=== PATIENT | female | born 1940 | race Caucasian/White ===

== ENCOUNTER 2017-09-22 22:34 | Inpatient (IN) | payer OTHER ==
[~2017-09-22] VITALS: Ht 154.9 cm; Wt 62.7 kg
[~2017-09-22 22:34] MED LIST: ASPIRIN81 M2 PO; ATIVAN0.5 MG PO; DULCOLAX5 MG PO; HYDROCHLOROTH12.5 M3 PO; K-DUR20 MEQ PO; METAMUCIL POWD798 GM PO; PERCOCET 5/31 TABLET PO; POLYETHYLENE GL17 GM PO; SYNTHROID112 MCG PO
[2017-09-22 23:19] LABS: HEMOGLOBIN 14.2 G/DL (11.9-15.5); MCH 32.6 PG (29.0-34.0); MCHC 34.6 G/DL (30.0-36.0); PLATELET COUNT 257 K/uL (156-360); RBC DIS.WIDTH-CV 12.7 % (11.8-14.6); RBC DIS.WIDTH-SD 44.1 % (39-53); RED BLOOD COUNT 4.36 M/uL (3.80-5.20)
[2017-09-22 23:27] LABS: ALBUMIN 4.3 g/dL (3.2-4.8); CHLORIDE 105 mEq/L (99-109); POTASSIUM 3.7 mEq/L (3.7-5.4); SODIUM 145 mEq/L (136-147)
[2017-09-22 23:29] LABS: GLUCOSE 147 mg/dL (70-99); TOTAL PROTEIN 6.9 g/dL (6.4-8.3)
[2017-09-22 23:31] LABS: TOTAL BILIRUBIN 1.1 mg/dL (0.0-1.0)
[2017-09-22 23:33] LABS: ALKALINE PHOSPHATASE 68 IU/L (3-129); CREATININE 0.8 mg/dL (0.6-1.3); GFR ESTIMATE (CALCULATED) > 59 mL/min/
[2017-09-22 23:34] LABS: UREA NITROGEN (BUN) 12 mg/dL (9-23)
[2017-09-22 23:35] LABS: AST (GOT) 16 IU/L (2-34)
[2017-09-22 23:36] LABS: ALT (GPT) 17 IU/L (3-49)
[2017-09-23 01:18] LABS: APPEARANCE CLOUDY ((CLEAR)); BILIRUBIN NEGATIVE; BLOOD NEGATIVE; COLOR YELLOW ((YELLOW)); GLUCOSE (STRIP) NEGATIVE; KETONES 5; LEUKOCYTES NEGATIVE; NITRITE NEGATIVE; PROTEIN (STRIP) NEGATIVE; SPECIFIC GRAVITY 1.016 (1.000-1.030); UROBILINOGEN 0.2 MG/DL (0.2-1.0)
[2017-09-23 01:38] LABS: BACTERIA 2+ /HPF; EPITHELIAL CELLS 1+ /HPF; MUCUS 2+ /LPF; RED BLOOD CELLS NONE SEEN /HPF (0-5); UCUL ADDED? YES; WHITE BLOOD CELLS NONE SEEN /HPF (0-5)
[2017-09-23 01:39] LABS: AMORPHOUS URATES CRYSTALS 3+
[2017-09-23 01:56] LABS: LIPASE 128 U/L (1.0-51.0)
[2017-09-23 02:01] LABS: TROP-I INTERPRETATION NEGATIVE; TROPONIN-I 0.01 ng/mL (0.0-0.30)
[2017-09-23 08:29] LABS: BASOPHIL (%) 0.2 % (0-1); EOSINOPHIL (%) 0.1 % (0-5); HEMATOCRIT 38.4 % (36.0-46.0); HEMOGLOBIN 13.4 G/DL (11.9-15.5); IMMATURE GRANULOCYTE (%) 0.4 % (0.0-0.7); LYMPHOCYTE COUNT 0.8 K/uL (1.0-2.8); MCH 32.8 PG (29.0-34.0); MCHC 34.9 G/DL (30.0-36.0); MCV 93.9 FL (83-99); MONOCYTE (%) 9.9 % (3-12); NEUTROPHIL (%) 81.4 % (45-76); PLATELET COUNT 258 K/uL (156-360); RBC DIS.WIDTH-SD 45.1 % (39-53); RED BLOOD COUNT 4.09 M/uL (3.80-5.20); WHITE BLOOD COUNT 9.8 K/uL (4.1-10.2)
[2017-09-23 08:38] LABS: ALBUMIN 3.9 g/dL (3.2-4.8); CHLORIDE 110 mEq/L (99-109); POTASSIUM 3.4 mEq/L (3.7-5.4); SODIUM 144 mEq/L (136-147)
[2017-09-23 08:40] LABS: GLUCOSE 121 mg/dL (70-99); TOTAL PROTEIN 6.1 g/dL (6.4-8.3)
[2017-09-23 08:42] LABS: TOTAL BILIRUBIN 1.3 mg/dL (0.0-1.0)
[2017-09-23 08:44] LABS: ALKALINE PHOSPHATASE 58 IU/L (3-129); CREATININE 0.7 mg/dL (0.6-1.3); GFR ESTIMATE (CALCULATED) > 59 mL/min/
[2017-09-23 08:45] LABS: UREA NITROGEN (BUN) 9 mg/dL (9-23)
[2017-09-23 08:46] LABS: AST (GOT) 15 IU/L (2-34)
[2017-09-23 08:47] LABS: ALT (GPT) 16 IU/L (3-49)
[2017-09-23] MEDS ORDERED: VITAMIN D32000 UNI1 PO (09:46)
[2017-09-23] MEDS ORDERED: ULTRAM50 MG PO (09:46)
[2017-09-23 10:03] LABS: DIRECT BILIRUBIN 0.4 mg/dL (0.0-0.3); LIPASE 25 U/L (1.0-51.0)
[2017-09-23 21:50] VITALS: BP 127/57
[2017-09-23 23:50] VITALS: BP 131/64
[2017-09-24 04:45] VITALS: BP 136/66
[2017-09-24 04:45] LABS: HEMATOCRIT 35.5 % (36.0-46.0); MCH 32.8 PG (29.0-34.0); MCHC 33.8 G/DL (30.0-36.0); PLATELET COUNT 203 K/uL (156-360); RBC DIS.WIDTH-CV 13.2 % (11.8-14.6); RBC DIS.WIDTH-SD 47.4 % (39-53); RED BLOOD COUNT 3.66 M/uL (3.80-5.20); WHITE BLOOD COUNT 6.2 K/uL (4.1-10.2)
[2017-09-24 04:56] LABS: CHLORIDE 109 mEq/L (99-109); SODIUM 145 mEq/L (136-147)
[2017-09-24 04:58] LABS: GLUCOSE 162 mg/dL (70-99)
[2017-09-24 05:02] LABS: CREATININE 0.8 mg/dL (0.6-1.3); GFR ESTIMATE (CALCULATED) > 59 mL/min/
[2017-09-24 05:03] LABS: UREA NITROGEN (BUN) 13 mg/dL (9-23)
[2017-09-24 05:04] LABS: POTASSIUM 4.1 mEq/L (3.7-5.4)
[2017-09-24 07:05] VITALS: BP 131/61
[2017-09-24 11:16] VITALS: BP 137/61
[2017-09-24 15:31] VITALS: BP 141/66
[2017-09-24 20:35] VITALS: BP 148/66
[2017-09-25 00:22] VITALS: BP 162/70
[2017-09-25 04:26] VITALS: BP 162/73
[2017-09-25 06:51] LABS: HEMATOCRIT 33.2 % (36.0-46.0); HEMOGLOBIN 10.6 G/DL (11.9-15.5); MCH 31.5 PG (29.0-34.0); MCHC 31.9 G/DL (30.0-36.0); MCV 98.5 FL (83-99); PLATELET COUNT 180 K/uL (156-360); RBC DIS.WIDTH-CV 13.2 % (11.8-14.6); RBC DIS.WIDTH-SD 47.8 % (39-53); RED BLOOD COUNT 3.37 M/uL (3.80-5.20); WHITE BLOOD COUNT 6.5 K/uL (4.1-10.2)
[2017-09-25 07:14] LABS: CHLORIDE 110 MEQ/L (99-109); CREATININE 0.5 MG/DL (0.6-1.3); GFR ESTIMATE (CALCULATED) > 59 mL/min/; POTASSIUM 4.2 MEQ/L (3.7-5.4); SODIUM 142 MEQ/L (136-147); UREA NITROGEN (BUN) 13 mg/dL (9-23)
[2017-09-25 07:15] LABS: GLUCOSE 109 mg/dL (70-99)
[2017-09-25 08:00] VITALS: BP 169/79
[2017-09-25 12:05] VITALS: BP 152/67
[2017-09-25 16:31] VITALS: BP 186/72
[2017-09-25 19:59] VITALS: BP 158/71
[2017-09-26 00:34] VITALS: BP 151/67
[2017-09-26 03:42] VITALS: BP 151/67
[2017-09-26 06:53] LABS: BASOPHIL (%) 0.1 % (0-1); EOSINOPHIL (%) 0.9 % (0-5); EOSINOPHIL COUNT 0.1 K/uL (0-0.3); HEMATOCRIT 30.5 % (36.0-46.0); HEMOGLOBIN 10.2 G/DL (11.9-15.5); IMMATURE GRANULOCYTE (%) 1.3 % (0.0-0.7); LYMPHOCYTE (%) 10.6 % (15-42); LYMPHOCYTE COUNT 0.8 K/uL (1.0-2.8); MCH 32.1 PG (29.0-34.0); MCHC 33.4 G/DL (30.0-36.0); MCV 95.9 FL (83-99); MONOCYTE (%) 10.1 % (3-12); MONOCYTE COUNT 0.8 K/uL (0-0.8); NEUTROPHIL COUNT 6.1 K/uL (1.8-6.4); PLATELET COUNT 183 K/uL (156-360); RBC DIS.WIDTH-CV 12.6 % (11.8-14.6); RBC DIS.WIDTH-SD 45.1 % (39-53); RED BLOOD COUNT 3.18 M/uL (3.80-5.20); WHITE BLOOD COUNT 7.9 K/uL (4.1-10.2)
[2017-09-26 07:12] LABS: ALBUMIN 2.6 G/DL (3.2-4.8); ALKALINE PHOSPHATASE 53 IU/L (3-129); ALT (GPT) 9 IU/L (3-49); AST (GOT) 9 IU/L (2-34); CHLORIDE 105 MEQ/L (99-109); CREATININE 0.4 MG/DL (0.6-1.3); GFR ESTIMATE (CALCULATED) > 59 mL/min/; GLUCOSE 118 mg/dL (70-99); POTASSIUM 3.5 MEQ/L (3.7-5.4); SODIUM 139 MEQ/L (136-147); TOTAL BILIRUBIN 1.6 MG/DL (0.0-1.0); TOTAL PROTEIN 4.6 G/DL (6.4-8.3); UREA NITROGEN (BUN) 8 mg/dL (9-23)
[2017-09-26 08:24] VITALS: BP 174/72
[2017-09-26 16:45] VITALS: BP 170/81
[2017-09-26 19:41] VITALS: BP 162/86
[2017-09-27] VITALS (7 sets, daily range): BP systolic 120–175; BP diastolic 62–82
[2017-09-27 06:12] LABS: HEMATOCRIT 31.8 % (36.0-46.0); HEMOGLOBIN 10.7 G/DL (11.9-15.5); MCH 31.6 PG (29.0-34.0); MCHC 33.6 G/DL (30.0-36.0); MCV 93.8 FL (83-99); PLATELET COUNT 221 K/uL (156-360); RBC DIS.WIDTH-CV 12.4 % (11.8-14.6); RBC DIS.WIDTH-SD 42.9 % (39-53); RED BLOOD COUNT 3.39 M/uL (3.80-5.20); WHITE BLOOD COUNT 7.4 K/uL (4.1-10.2)
[2017-09-27 06:36] LABS: CHLORIDE 106 MEQ/L (99-109); CREATININE 0.5 MG/DL (0.6-1.3); GFR ESTIMATE (CALCULATED) > 59 mL/min/; GLUCOSE 138 mg/dL (70-99); POTASSIUM 3.5 MEQ/L (3.7-5.4); SODIUM 143 MEQ/L (136-147); UREA NITROGEN (BUN) 6 mg/dL (9-23)
[2017-09-28] VITALS (7 sets, daily range): BP systolic 127–157; BP diastolic 61–70
[2017-09-28 06:14] LABS: HEMATOCRIT 31.8 % (36.0-46.0); HEMOGLOBIN 10.6 G/DL (11.9-15.5); MCH 31.8 PG (29.0-34.0); MCHC 33.3 G/DL (30.0-36.0); MCV 95.5 FL (83-99); PLATELET COUNT 237 K/uL (156-360); RBC DIS.WIDTH-CV 12.5 % (11.8-14.6); RBC DIS.WIDTH-SD 43.9 % (39-53); RED BLOOD COUNT 3.33 M/uL (3.80-5.20); WHITE BLOOD COUNT 7.7 K/uL (4.1-10.2)
[2017-09-28 06:35] LABS: CHLORIDE 105 MEQ/L (99-109); CREATININE 0.5 MG/DL (0.6-1.3); GFR ESTIMATE (CALCULATED) > 59 mL/min/; GLUCOSE 119 mg/dL (70-99); POTASSIUM 3.7 MEQ/L (3.7-5.4); SODIUM 142 MEQ/L (136-147); UREA NITROGEN (BUN) 8 mg/dL (9-23)
[2017-09-29 04:13] VITALS: BP 153/69
[2017-09-29 06:07] LABS: HEMATOCRIT 32.7 % (36.0-46.0); HEMOGLOBIN 11.2 G/DL (11.9-15.5); MCHC 34.3 G/DL (30.0-36.0); MCV 93.4 FL (83-99); PLATELET COUNT 273 K/uL (156-360); RBC DIS.WIDTH-CV 12.5 % (11.8-14.6); RBC DIS.WIDTH-SD 42.5 % (39-53); WHITE BLOOD COUNT 7.8 K/uL (4.1-10.2)
[2017-09-29 07:19] LABS: CHLORIDE 100 MEQ/L (99-109); CREATININE 0.4 MG/DL (0.6-1.3); GFR ESTIMATE (CALCULATED) > 59 mL/min/; GLUCOSE 126 mg/dL (70-99); POTASSIUM 3.3 MEQ/L (3.7-5.4); SODIUM 138 MEQ/L (136-147); UREA NITROGEN (BUN) 5 mg/dL (9-23)
[2017-09-29 08:40] VITALS: BP 155/69
[2017-09-29 12:14] VITALS: BP 137/69
[2017-09-29 15:03] VITALS: BP 137/64
[2017-09-30 00:48] VITALS: BP 164/75
[2017-09-30 06:51] LABS: HEMATOCRIT 34.7 % (36.0-46.0); MCH 32.3 PG (29.0-34.0); MCHC 34.6 G/DL (30.0-36.0); MCV 93.3 FL (83-99); PLATELET COUNT 351 K/uL (156-360); RBC DIS.WIDTH-CV 12.6 % (11.8-14.6); RBC DIS.WIDTH-SD 43.3 % (39-53); RED BLOOD COUNT 3.72 M/uL (3.80-5.20)
[2017-09-30 07:11] VITALS: BP 138/70
[2017-09-30 07:16] LABS: CHLORIDE 104 MEQ/L (99-109); CREATININE 0.5 MG/DL (0.6-1.3); GFR ESTIMATE (CALCULATED) > 59 mL/min/; GLUCOSE 121 mg/dL (70-99); MAGNESIUM 2.1 mg/dl (1.3-2.7); SODIUM 142 MEQ/L (136-147); UREA NITROGEN (BUN) 7 mg/dL (9-23)
[2017-09-30 07:19] LABS: POTASSIUM 4.2 MEQ/L (3.7-5.4)
[2017-09-30 07:55] VITALS: BP 154/69
[2017-09-30 15:07] VITALS: BP 128/102
[2017-10-01 00:13] VITALS: BP 128/61
[2017-10-01 08:25] VITALS: BP 135/65
== END 2017-10-01 12:42 | disposition home health service (06) | DRG 329 ==
LOC: EME 22:34 → EDOF 09-23 04:18 → 4EAST 09-23 04:18 → ENRESERV 09-23 04:33 → EDOF 09-23 19:27 → ENRESERV 09-23 19:31 → 2SOUTH 09-23 20:19 → 4EAST 09-23 21:24 → ENRESERV 09-24 15:36 → 3EAST 09-24 19:52
PROVIDERS: Internal Medicine; Student in an Organized Health Care Education/Training Program; Surgery
DX: K91.32 Postprocedural complete intestinal obstruction (principal); K65.9 Peritonitis, unspecified; K43.0 Incisional hernia with obstruction, without gangrene; K50.10 Crohn's disease of large intestine without complications; E86.0 Dehydration; G35 Multiple sclerosis; N83.202 Unspecified ovarian cyst, left side; E87.6 Hypokalemia; I25.10 Atherosclerotic heart disease of native coronary artery without angina pectoris; E89.0 Postprocedural hypothyroidism; I10 Essential (primary) hypertension; R73.9 Hyperglycemia, unspecified; K59.09 Other constipation; M54.9 Dorsalgia, unspecified; G89.29 Other chronic pain; K76.0 Fatty (change of) liver, not elsewhere classified; F41.9 Anxiety disorder, unspecified; Z90.49 Acquired absence of other specified parts of digestive tract; Z87.891 Personal history of nicotine dependence; Z95.5 Presence of coronary angioplasty implant and graft; Z98.1 Arthrodesis status; Z80.3 Family history of malignant neoplasm of breast; Z82.49 Family history of ischemic heart disease and other diseases of the circulatory system
CPT/HCPCS: 71045; 74177; 80048; 80053; 80076; 81003; 82248; 83605; 83690; 83735; 84484; 85025; 85027; 87086; 88307; 93005; 94799; 97530 GO; 97530 GP; 99281; 99284; J0131; J0360; J1100; J1170; J1644; J1650; J1885; J2270; J2405; J2710; J3010; J3480; J7030; S0074